=== PATIENT | male | born 1945 | race Caucasian/White ===

== ENCOUNTER 2019-01-16 07:19 | Emergency (ER) | payer BC ==
[~2019-01-16] VITALS: Ht 172.7 cm; Wt 90.0 kg
[~2019-01-16 07:19] MED LIST: BLOOD PRESSURE PILL; NORCO 5-325 TA1 EACH PO; VICODIN 5-5001 EACH PO; ZOFRAN ODT4 MG PO; [UNRECOGNIZED DRUG - REMARK]
[2019-01-16] MEDS ORDERED: SIMVASTATIN40 MG PO (07:30)
[2019-01-16] MEDS ORDERED: ZESTORETIC 20-1 EAC3 PO (07:30)
[2019-01-16] MEDS ORDERED: TRICOR145 MG PO (07:30)
[2019-01-16 07:37] LABS: ABSOLUTE BASOPHILS 0.1 thou/uL (0.0-0.2); ABSOLUTE EOSINOPHILS 0.2 thou/uL (0.0-0.7); ABSOLUTE MONOCYTES 0.9 thou/uL (0.0-1.2); ABSOLUTE NEUTROPHILS 6.6 thou/uL (1.6-8.1); EOSINOPHILS 1.8 %; HEMATOCRIT 55.4 % (42.0-52.0); LYMPHOCYTES 20.3 %; MCH 33.9 pg (26.0-34.0); MCHC 34.3 g/dL (28.0-37.0); MCV 98.8 fL (80.0-100.0); MONOCYTES 9.7 %; MPV 10.1 fl. (7.2-11.1); NUCLEATED RBCS 0 /100WBC; PLATELET COUNT* 177 thou/uL (150-400); POLYS 67.2 %; RBC 5.61 mil/uL (4.50-6.00); RDW-CV 14.5 % (10.5-14.5); WBC 9.8 thou/uL (4.0-11.0)
[2019-01-16 07:39] LABS: URINE BILIRUBIN NEGATIVE (Negative); URINE BLOOD 3+ (Negative); URINE CLARITY CLEAR; URINE COLOR YELLOW; URINE GLUCOSE-RANDOM NEGATIVE (Negative); URINE KETONES NEGATIVE (Negative); URINE LEUKOCYTES-REFLEX 1+ (Negative); URINE NITRITE-REFLEX NEGATIVE (Negative); URINE PROTEIN TRACE (Negative); URINE UROBILINOGEN 0.2 E.U./dl (0.2-1.0)
[2019-01-16 07:45] LABS: BACTERIA-REFLEX 1-9 Few /HPF (None Seen); CASTS None Seen /LPF (None Seen); CRYSTALS None Seen /LPF (None Seen); MUCUS None Seen strn/LPF (None Seen); SQUAMOUS 0-3 Few /LPF (0-3); URINE RBC 3-10 Few /HPF (0-2); URINE WBC-REFLEX 0-5 Rare /HPF (0-5)
[2019-01-16 07:45] LABS: CALCIUM 9.5 mg/dL (8.5-10.1); CREATININE 1.1 mg/dL (0.6-1.3); POTASSIUM 3.9 mmol/L (3.5-5.1)
[2019-01-16 07:50] LABS: TOTAL BILIRUBIN 0.7 mg/dL (<0.1-1.0)
[2019-01-16] MEDS ORDERED: KEFLEX500 M1 PO (08:27)
[2019-01-16 08:43] VITALS: BP 148/68
== END 2019-01-16 08:44 | disposition home or self-care (01) ==
LOC: M.ERS 07:19
PROVIDERS: Personal Emergency Response Attendant
DX: N39.0 Urinary tract infection, site not specified (principal); R31.9 Hematuria, unspecified; E78.00 Pure hypercholesterolemia, unspecified; F17.210 Nicotine dependence, cigarettes, uncomplicated

== ENCOUNTER 2019-05-01 07:43 | Emergency (ER) | payer BC ==
[~2019-05-01] VITALS: Ht 170.2 cm; Wt 81.7 kg
[~2019-05-01 07:43] MED LIST changes: +KEFLEX500 M1 PO; +SIMVASTATIN40 MG PO; +TRICOR145 MG PO; +ZESTORETIC 20-1 EAC3 PO
[2019-05-01 07:49] VITALS: BP 199/93
[2019-05-01] MEDS ORDERED: HYDROCODONE-AP1 EAC6 PO (08:11)
[2019-05-01] MEDS ORDERED: KEFLEX500 M1 PO (08:12)
== END 2019-05-01 08:25 | disposition home or self-care (01) ==
LOC: M.ERS 07:43
DX: T22.212A Burn of second degree of left forearm, initial encounter (principal); T31.0 Burns involving less than 10% of body surface; E78.00 Pure hypercholesterolemia, unspecified; F17.210 Nicotine dependence, cigarettes, uncomplicated; X12.XXXA Contact with other hot fluids, initial encounter; Y93.89 Activity, other specified; Y92.89 Other specified places as the place of occurrence of the external cause; Y99.8 Other external cause status

== ENCOUNTER 2021-12-19 09:01 | Emergency (ER) | payer BC ==
[~2021-12-19] VITALS: Ht 167.6 cm; Wt 81.7 kg
[~2021-12-19 09:01] MED LIST changes: +HYDROCODONE-AP1 EAC6 PO
[2021-12-19] MEDS ORDERED: PREDNISONE 20 M20 M1 PO (09:22)
[2021-12-19] MEDS ORDERED: HYDROCODON-ACE1 EAC7 PO (09:22)
[2021-12-19 09:27] VITALS: BP 197/92
== END 2021-12-19 09:28 | disposition home or self-care (01) ==
LOC: M.ERS 09:01
DX: M54.42 Lumbago with sciatica, left side (principal); I10 Essential (primary) hypertension; E78.00 Pure hypercholesterolemia, unspecified; F17.210 Nicotine dependence, cigarettes, uncomplicated; Z79.2 Long term (current) use of antibiotics; Z79.899 Other long term (current) drug therapy